=== PATIENT | male | born 1940 | race Caucasian/White ===

== ENCOUNTER 2021-04-09 06:37 | Outpatient (CLI) | payer MEDICARE, OTHER ==
[~2021-04-09] VITALS: Ht 182.9 cm; Wt 102.2 kg
[2021-04-09] MEDS ORDERED: LOSA25TA41 PO (14:30)
[2021-04-09] MEDS ORDERED: ASPI-1238 PO (14:30)
[2021-04-09] MEDS ORDERED: OMEP40CA6 PO (14:30)
[2021-04-09] MEDS ORDERED: INSU100V31 IJ (14:30)
[2021-04-09] MEDS ORDERED: METF-399 PO (14:30)
[2021-04-09] MEDS ORDERED: FLUT9.9S NS (14:30)
[2021-04-09] MEDS ORDERED: ATOR10TA66 PO (14:30)
[2021-04-09] MEDS ORDERED: MAGN400T8 PO (14:30)
[2021-04-09] MEDS ORDERED: FINA5TAB6 PO (14:30)
[2021-04-09] MEDS ORDERED: TMSL.4C PO (14:30)
[2021-04-09] MEDS ORDERED: INSN1U SQ (14:30)
== END 2021-04-09 14:35 | disposition home or self-care (01) ==
LOC: PREOP 06:37
PROVIDERS: ATTEND Otolaryngology Otolaryngology/Facial Plastic Surgery
DX: Z01.818 Encounter for other preprocedural examination (principal)

== ENCOUNTER 2021-04-16 07:20 | Day surgery (SDC) | payer MEDICARE, OTHER ==
[2021-04-16] VITALS (10 sets, daily range): BP systolic 125–151; BP diastolic 72–92
[~2021-04-16] VITALS: Ht 183 cm; Wt 101.2 kg
[~2021-04-16 07:20] MED LIST: ASPI-1238 PO; ATOR10TA66 PO; FINA5TAB6 PO; FLUT9.9S NS; INSN1U SQ; INSU100V31 IJ; LOSA25TA41 PO; MAGN400T8 PO; METF-399 PO; OMEP40CA6 PO; TMSL.4C PO
[2021-04-16] MEDS ORDERED: LACTATED RINGERS 1,000 ML IV PRN (08:00)
--- NOTE | 2021-04-16 08:54 | Progress Note-Pre Operative ---
Pre-Operative Progress Note H&P Reviewed The H&P was reviewed, patient examined and no changes noted. Date Seen by Provider: Apr 16, 2021 Time Seen by Provider: : Date H&P Reviewed: Apr 16, 2021 Time H&P Reviewed: : Pre-Operative Diagnosis: Deviated Nasal Septum, Bialt Hyper of Inf Turbs KALANI VÁZQUEZ MD Apr 16, 2021 08:54
[2021-04-16] MEDS ORDERED: COCAINE HCL 4% 2 ML SYR ONE (08:59)
[2021-04-16] MEDS ORDERED: PHENYLEPHRINE 0.5% NASAL SPR (NEO-SYNEPHRINE) REG ONE (09:00)
[2021-04-16] MEDS ORDERED: LIDOCAINE/EPI 1%-1:100,000 (XYLOCAINE) 20ML ONE (09:00)
[2021-04-16] MEDS ORDERED: fentaNYL INJ 100 MCG/2 ML AMP ONE (09:29)
[2021-04-16] MEDS ORDERED: MIDAZOLAM 2 MG/2 ML (VERSED) VIAL ONE (09:30)
[2021-04-16] MEDS ORDERED: ROCURONIUM 10 MG/ML 5 ML SYRINGE IV ONE (10:17)
[2021-04-16] MEDS ORDERED: NEOSTIGMINE 3 MG/3 ML VIAL ONE (10:17)
[2021-04-16] MEDS ORDERED: GLYCOPYRROLATE 0.2 MG/ML (ROBINUL) 2 ML VIAL ONE (10:18)
[2021-04-16] MEDS ORDERED: ONDANSETRON 4 MG/2 ML (SDV) Z0FRAN ONE ×2 (10:18→10:39)
[2021-04-16] MEDS ORDERED: proPOfol 200 MG/20 ML (DIPRIVAN) VIAL IV ONE (10:18)
[2021-04-16] MEDS ORDERED: BSS 15 ML ONE (10:20)
[2021-04-16] MEDS ORDERED: SEVOFLURANE (ULTANE) 15 ML INHAL SOLN ONE (10:20)
--- NOTE | 2021-04-16 10:23 | Progress Note-Post Operative ---
Post-Operative Progess Note Surgeon (s)/Clerk Analyst (s) Surgeon KALANI VÁZQUEZ MD Clerk Analyst n/a Pre-Operative Diagnosis Deviated Nasal Septum, Bialt Hyper of Inf Turbs Post-Operative Diagnosis same Post-Op Procedure Note Date of Procedure: Apr 16, 2021 Name of Procedure Performed: Nasal Septoplasty, Bialteral Partial REduction of the Inferior Turbinates Description & Findings Description and Findings: n/a Anesthesia Type get Estimated Blood Loss minimal Packing none. Specimen(s) collected/removed nasal septum KALANI VÁZQUEZ MD Apr 16, 2021 10:23
[2021-04-16] MEDS ORDERED: D5 1/2 NS W/KCL 20 MEQ/L 1,000 ML IV SCH (10:30)
[2021-04-16] MEDS ORDERED: PROMETHAZINE INJ 25 MG/ML (PHENERGAN) AMP IVP PRN (10:30)
[2021-04-16] MEDS ORDERED: HYDROcodone/APAP 5 MG/325 MG (LORTAB) TAB PO PRN (10:30)
[2021-04-16] MEDS ORDERED: PHENYLEPHRINE 100 MCG/ML 10 ML (ANESTHESIA) SYR ONE (10:36)
--- NOTE | 2021-04-16 10:48 | Anesthesia-General Post-Op ---
General Patient Condition Mental Status/LOC: Same as Preop Cardiovascular: Satisfactory Nausea/Vomiting: Absent Respiratory: Satisfactory Pain: Controlled Complications: Absent Post Op Complications Complications None Follow Up Care/Instructions Patient Instructions None needed. Anesthesia/Patient Condition Patient Condition Patient is doing well, no complaints, stable vital signs, no apparent adverse anesthesia problems. No complications reported per nursing. DOLLY REIS CRNA Apr 16, 2021 10:47
[2021-04-16] MEDS ORDERED: ACHD5005 PO (10:57)
[2021-04-16] MEDS ORDERED: AMOX-355 PO (10:57)
[2021-04-16] MEDS ORDERED: ONDANSETRON 4 MG/2 ML (SDV) Z0FRAN IVP PRN (11:00)
== END 2021-04-16 13:20 | disposition home or self-care (01) ==
LOC: SDC 07:20
PROVIDERS: ATTEND Otolaryngology Otolaryngology/Facial Plastic Surgery
DX: J34.2 Deviated nasal septum (principal); J34.3 Hypertrophy of nasal turbinates; J34.89 Other specified disorders of nose and nasal sinuses; R09.81 Nasal congestion; K21.9 Gastro-esophageal reflux disease without esophagitis; E11.9 Type 2 diabetes mellitus without complications; E78.5 Hyperlipidemia, unspecified; Z79.82 Long term (current) use of aspirin; Z87.891 Personal history of nicotine dependence; Z79.899 Other long term (current) drug therapy; Z79.4 Long term (current) use of insulin
CPT/HCPCS: 82947; 87081